=== PATIENT | male | born 2000 | race Hispanic/Latino ===

== ENCOUNTER 2023-12-07 08:58 | Emergency (ER) | payer OTHER ==
[2023-12-07] MEDS ORDERED: Lidocaine 1% w/Epinephrine 1:100K 20 ML VIAL ONE (09:09)
[2023-12-07] MEDS ORDERED: HYDROcodone/Acetaminophen 10/325 mg Tablet ONE (09:25)
[2023-12-07] MEDS ORDERED: Boostrix 0.5 ML (Tdap) VIAL (>/=7 yrs of age) ONE (09:26)
[2023-12-07] MEDS ORDERED: Bacitracin 1 PK ONE (10:59)
== END 2023-12-07 11:33 | disposition home or self-care (01) ==
LOC: NAV ERS 08:58
DX: S81.012A Laceration without foreign body, left knee, initial encounter (principal); Z23 Encounter for immunization; W29.3XXA Contact with powered garden and outdoor hand tools and machinery, initial encounter
CPT/HCPCS: 12002; 90471; 90715